=== PATIENT | female | born 1940 | race Caucasian/White ===

== ENCOUNTER 2016-07-30 19:52 | Emergency (ER) | payer OTHER ==
[2016-07-30 20:42] LABS: HEMOGLOBIN 14.4 gm/dl (12.3-15.3); RED BLOOD COUNT 4.63 M/UL (4.00-5.10); WHITE BLOOD COUNT 11.6 K/UL (4.5-11.0)
[2016-07-30 21:02] LABS: BUN/CREATININE RATIO 37 (0-10)
[2017-01-08] MEDS ORDERED: LEVOTHYROXINE88 MCG PO (08:05)
[2017-01-08] MEDS ORDERED: NAPROXEN SODIU220 M1 PO (08:06)
[2017-01-08] MEDS ORDERED: OMEPRAZOLE20 MG PO (08:06)
[2017-01-08] MEDS ORDERED: CRESTOR10 MG PO (08:07)
[2017-01-08] MEDS ORDERED: NORVASC 5 MG TAB5 MG PO (08:09)
[2017-01-08] MEDS ORDERED: ALL DAY ALLERG1 EACH PO (08:09)
[2017-01-08] MEDS ORDERED: CELEXA 20MG TAB20 MG PO (08:10)
[2017-01-08] MEDS ORDERED: LANSOPRAZOLE30 MG PO (08:10)
[2017-01-09] MEDS ORDERED: NORCO 5-325 TA1 EACH PO (11:48)
[2017-01-09] MEDS ORDERED: NAPROSYN500 MG PO (11:49)
[2017-01-09] MEDS ORDERED: MIRALAX17 GM PO (11:49)
== END 2016-07-30 23:20 | disposition home or self-care (01) ==
LOC: ER1 19:52
PROVIDERS: Family Medicine
DX: I47.1 Supraventricular tachycardia (principal); E03.9 Hypothyroidism, unspecified; K44.9 Diaphragmatic hernia without obstruction or gangrene; R79.89 Other specified abnormal findings of blood chemistry; Z88.0 Allergy status to penicillin
CPT/HCPCS: 36415; 71010; 71250; 80053; 82550; 82553; 83874; 84439; 84443; 84484; 85025; 93005; 99285

== ENCOUNTER → 2016-12-29 | Outpatient (CLI) | payer OTHER ==
[2016-12-29 10:35] LABS: HEMOGLOBIN 13.5 gm/dl (12.3-15.3); RED BLOOD COUNT 4.36 M/UL (4.00-5.10); WHITE BLOOD COUNT 8.8 K/UL (4.5-11.0)
== END ==
LOC: OPSV2 09:41
PROVIDERS: Obstetrics & Gynecology
DX: Z01.810 Encounter for preprocedural cardiovascular examination (principal); Z01.812 Encounter for preprocedural laboratory examination; Z01.818 Encounter for other preprocedural examination; N81.10 Cystocele, unspecified
CPT/HCPCS: 81001; 85025; 93005

== ENCOUNTER → 2021-02-14 | Outpatient (CLI) | payer OTHER ==
[~2021-02-14] MED LIST: ALL DAY ALLERG1 EACH PO; CARDIZEM CD240 MG PO; CELEXA 20MG TAB20 MG PO; CRESTOR10 MG PO; LANSOPRAZOLE30 MG PO; LEVOTHYROXINE88 MCG PO; MIRALAX17 GM PO; NAPROSYN500 MG PO; NAPROXEN SODIU220 M1 PO; NORCO 5-325 TA1 EACH PO; NORVASC 5 MG TAB5 MG PO; OMEPRAZOLE20 MG PO; PERCOCET 5-3251 EACH PO; [UNRECOGNIZED DRUG - OTHER] PO
== END ==
LOC: KOH-I 10:50
DX: R63.4 Abnormal weight loss (principal); M43.8X4 Other specified deforming dorsopathies, thoracic region
CPT/HCPCS: 71046

== ENCOUNTER → 2021-04-02 | Outpatient (CLI) | payer OTHER ==
[2021-04-02 07:45] LABS: BUN/CREATININE RATIO 22 (0-10)
== END ==
LOC: CT 06:57
PROVIDERS: Physician Assistant
DX: R63.4 Abnormal weight loss (principal); R10.9 Unspecified abdominal pain; S22.088S Other fracture of T11-T12 vertebra, sequela
CPT/HCPCS: 36415; 71270; 80048; Q9967